=== PATIENT | male | born 1950 | race Caucasian/White ===

== ENCOUNTER 2025-04-15 08:03 | Emergency (ER) | payer OTHER ==
[2025-04-15] MEDS ORDERED: Dexamethasone 4 MG TAB ONE (09:09)
== END 2025-04-15 09:15 | disposition home or self-care (01) ==
LOC: BURERS 08:03
DX: J10.1 Influenza due to other identified influenza virus with other respiratory manifestations (principal); F17.200 Nicotine dependence, unspecified, uncomplicated
CPT/HCPCS: 71045; 87428; J8540